=== PATIENT | female | born 1970 | race Caucasian/White ===

== ENCOUNTER 2023-04-05 03:07 | Emergency (ER) | payer BC ==
[~2023-04-05] VITALS: Ht 154.9 cm; Wt 67.1 kg
[2023-04-05 03:23] VITALS: BP_SYST 120; PULSE 80; RESP 17; TEMP 98.2; O2SAT 98
--- NOTE | 2023-04-05 03:29 | NUR ---
Patient triaged and placed in waiting room. VS checked and patient appears in no acute distress at this time. Accompanied by family, awaiting available bed, and MD notified of need for MSE.
[2023-04-05] MEDS ORDERED: SULF1TAB48 PO (03:52)
[2023-04-05] MEDS ORDERED: KETOROLAC TROMETHAMINE 60 MG/2 ML VIAL IM ONE (04:00)
[2023-04-05] MEDS ORDERED: KETOROLAC TROMETHAMINE 30 MG VIAL ONE (04:04)
--- NOTE | 2023-04-05 05:05 | NUR ---
MD EVALUATED AND MEDICATED PER MD
--- NOTE | 2023-04-05 05:10 | NUR ---
Patient given written and verbal discharge instructions and verbalizes understanding. ER MD DESAI discussed with patient the results and treatment provided. Patient in stable condition. ID arm band removed. IV catheter removed intact and dressing applied, no active bleeding. Rx of BACTRIM given. Patient educated on pain management and to follow up with PMD. Pain Scale . Opportunity for questions provided and answered. Medication side effect fact sheet provided.
[2023-04-05 05:12] VITALS: BP_SYST 122; PULSE 88; RESP 18; TEMP 98.4; O2SAT 98
== END 2023-04-05 05:15 | disposition home or self-care (01) ==
LOC: SED 03:07
DX: L03.211 Cellulitis of face (principal); R51.9 Headache, unspecified; Z88.0 Allergy status to penicillin; Z88.6 Allergy status to analgesic agent; Z79.899 Other long term (current) drug therapy
CPT/HCPCS: 99283; J1885